=== PATIENT | female | born 1970 | race American Indian/Alaskan Native ===

== ENCOUNTER 2020-07-12 15:28 | Emergency (ER) | payer OTHER ==
[2020-07-12 15:49] VITALS: BP 137/81
--- NOTE | 2020-07-12 18:07 | XRay Report ---
CHEST 2 VIEWS INDICATION / CLINICAL INFORMATION: cough and congestion. COMPARISON: None available. FINDINGS: SUPPORT DEVICES: None. HEART / MEDIASTINUM: No significant abnormality. LUNGS / PLEURA: No significant pulmonary or pleural abnormality. No pneumothorax. ADDITIONAL FINDINGS: No significant additional findings. IMPRESSION: 1. No acute findings. Signer Name: Deepa Erazo MD Signed: 07/12/2020 6:02 PM Workstation Name: [id number]
--- NOTE | 2020-07-12 19:56 | Emergency Department Report ---
- General Chief Complaint: Upper Respiratory Infection Stated Complaint: HEADACHE, CHEST PAIN, COUGH, EYES RUNNING WATER Time Seen by Provider: 07/12/20 16:44 Source: patient Mode of arrival: Ambulatory Limitations: No Limitations - History of Present Illness Initial Comments: 50-year-old -[place] female presents emerged department complaining of a couple day history/onset of cough and congestion with coryza. Reports no fever, chills, sweats, hemoptysis hematemesis hematochezia, no diarrhea a 50-year-old -[place] female presents to the emergency department complaining of a few day history of cough, congestion and coryza. She is also been having some vague aches to the chest with coughing with some headache myalgias and watery eyes that had minimal relief with the Claritin or other [id number] medications. MD Complaint: cough, rhinorrhea, nasal congestion -: Gradual Severity: mild Consistency: constant Context: sick contacts Associated Symptoms: chills, rhinorrhea, nasal congestion, cough. denies: abdominal pain, nausea, vomiting, diarrhea, confusion, right sweats, epistaxis, hoarseness, ear pain - Related Data Previous Rx's Medication Instructions Recorded Last Taken Type Albuterol Mdi (or & Nicu Only) 1 puff IH Q4-6H PRN #1 inha 07/12/20 Unknown Rx [ProAir HFA Inhaler] Benzonatate [Tessalon Perles] 100 mg PO Q8HR #20 capsule 07/12/20 Unknown Rx Fluticasone [Flonase] 1 spray NS QDAY #1 bottle 07/12/20 Unknown Rx predniSONE [Deltasone] 20 mg PO QDAY #5 tab 07/12/20 Unknown Rx Allergies Allergy/AdvReac Type Severity Reaction Status Date / Time No Known Allergies Allergy Unverified 07/12/20 15:43 ED Review of Systems ROS: Stated complaint: HEADACHE, CHEST PAIN, COUGH, EYES RUNNING WATER Other details as noted in HPI Comment: All other systems reviewed and negative ED Past Medical Hx - Past Medical History Previous Medical History?: No - Surgical History Past Surgical History?: No - Social History Smoking Status: Never Smoker Substance Use Type: Alcohol - Medications Home Medications: Home Medications Medication Instructions Recorded Confirmed Last Taken Type Albuterol Mdi (or & Nicu Only) 1 puff IH Q4-6H PRN #1 inha 07/12/20 Unknown Rx [ProAir HFA Inhaler] Benzonatate [Tessalon Perles] 100 mg PO Q8HR #20 capsule 07/12/20 Unknown Rx Fluticasone [Flonase] 1 spray NS QDAY #1 bottle 07/12/20 Unknown Rx predniSONE [Deltasone] 20 mg PO QDAY #5 tab 07/12/20 Unknown Rx ED Physical Exam - General Limitations: No Limitations General appearance: alert, in no apparent distress - Head Head exam: Present: atraumatic, normocephalic - Eye Eye exam: Present: normal appearance, PERRL, EOMI Pupils: Present: normal accommodation - ENT ENT exam: Present: mucous membranes moist, other (Nasal congestion bilaterally with swelling to the nasal turbinate. Clear nasal drainage noted.) - Neck Neck exam: Present: normal inspection - Respiratory Respiratory exam: Present: normal lung sounds bilaterally, rhonchi. Absent: respiratory distress, chest wall tenderness, accessory muscle use, decreased breath sounds, prolonged expiratory - Cardiovascular Cardiovascular Exam: Present: regular rate, normal rhythm. Absent: systolic murmur, diastolic murmur, rubs, gallop - GI/Abdominal GI/Abdominal exam: Present: soft, normal bowel sounds - Extremities Exam Extremities exam: Present: normal inspection - Back Exam Back exam: Present: normal inspection - Neurological Exam Neurological exam: Present: alert, oriented X3 - Psychiatric Psychiatric exam: Present: normal affect, normal mood - Skin Skin exam: Present: warm, dry, intact, normal color. Absent: rash ED Course Vital Signs 07/12/20 15:47 Temperature 98.7 F Pulse Rate 72 Respiratory 15 Rate Blood Pressure 137/81 O2 Sat by Pulse 100 Oximetry ED Medical Decision Making - Radiology Data Radiology results: report reviewed [address] [place] [id number] XRay Report Signed Patient: RICK JOYCE MR#: [id number] 1 : 1970 Acct:[id number] Age/Sex: 50 / F ADM Date: 07/12/20 Loc: ED Attending Dr: Ordering Physician: MISAEL SYKES Date of Service: 07/12/20 Procedure(s): XR chest routine 2V Accession Number(s): [id number] cc: MISAEL SYKES Fluoro Time In Minutes: CHEST 2 VIEWS INDICATION / CLINICAL INFORMATION: cough and congestion. COMPARISON: None available. FINDINGS: SUPPORT DEVICES: None. HEART / MEDIASTINUM: No significant abnormality. LUNGS / PLEURA: No significant pulmonary or pleural abnormality. No pneumothora x. ADDITIONAL FINDINGS: No significant additional findings. IMPRESSION: 1. No acute findings. Signer Name: Deepa Erazo MD Signed: 07/12/2020 6:02 PM Workstation Name: [id number] Transcribed By: DT Dictated By: Yaakov Erazo MD Electronically Authenticated By: Yaakov Erazo MD Signed Date/Time: 07/12/201801 DD/ 57 TD/TT: - Medical Decision Making This patient presents with acute cough, most consistent with a posterior tract infection. Differential diagnosis includes bronchitis, pneumonia, asthma, postnasal drip. Presentation not consistent with acute bacterial pneumonia, influenza, asthma, transient airway hyperresponsiveness. Presentation not consistent with chronic causes of cough (including GERD, asthma, postnasal discharge, medication side effect, CHF, lung cancer or mass). presents with symptoms suspicious for likely viral upper respiratory tract infection. Differential includes bacterial pneumonia, sinusitis, allergic rhinitis. Do not suspect underlying Cardiopulmonary process. I considered but think unlikely dangerous cause of this patient symptoms to include acute coronary syndrome, CHF or COPD exacerbations, pneumonia, pneumothorax. Patient is nontoxic appearing and not in need of emergent medical intervention. Plan: Reassurance, reassessment, [id number] medications, discharge with PCP follow-up Critical care attestation.: If time is entered above; I have spent that time in minutes in the direct care of this critically ill patient, excluding procedure time. ED Disposition Clinical Impression: Cough Disposition: DC-01 TO HOME OR SELFCARE Is pt being admited?: No Does the pt Need Aspirin: No Condition: Stable Instructions: Cough, Adult, [id number], Cool Mist Vaporizer, Cough, Adult Prescriptions: predniSONE [Deltasone] 20 mg PO QDAY #5 tab Fluticasone [Flonase] 1 spray NS QDAY #1 bottle Albuterol Mdi (or & Nicu Only) [ProAir HFA Inhaler] 1 puff IH Q4-6H PRN #1 inha PRN Reason: Cough Benzonatate [Tessalon Perles] 100 mg PO Q8HR #20 capsule Referrals: PRIMARY CARE, [Primary Care Provider] - 3-5 Days [facility] [Provider Group] - 3-5 Days BYRON ALCARAZ MD [Staff Physician] - 3-5 Days
== END 2020-07-12 20:13 | disposition home or self-care (01) ==
LOC: ED 15:28
DX: R05 Cough (principal); J34.89 Other specified disorders of nose and nasal sinuses; R09.81 Nasal congestion; Z79.899 Other long term (current) drug therapy
CPT/HCPCS: 71046